=== PATIENT | male | born 1985 | race Caucasian/White ===

== ENCOUNTER 2016-11-28 20:10 | Emergency (ER) | payer MEDICAID ==
[~2016-11-28] VITALS: Ht 177.8 cm; Wt 84.4 kg
[~2016-11-28 20:10] MED LIST: GABAPENTIN 400400 MG PO; IBUPROFEN800 MG PO; TESSALON PERLE100 M1 PO
[2016-11-28] MEDS ORDERED: TIZANIDINE HCL 44 MG NG (20:21)
[2016-11-28 20:27] LABS: LYMPH # 2.7 K/mm3 (0.7-4.5); LYMPH % 19.6 % (10-50)
[2016-11-28 20:53] LABS: BUN 15 mg/dL (7-18)
[2016-11-28 20:55] LABS: GFR (ESTIMATED) 78 ML/MIN (>60)
--- NOTE | 2016-11-28 21:19 | RADIOLOGY REPORT PS360 ---
CHEST(2 VIEWS-NOT PORTABLE) INDICATION: Chest pain COMPARISON: PA and lateral chest 06/09/2016 FINDINGS: The lung wheeler are well expanded and appear clear of infiltrate. The cardiomediastinal silhouette and vascularity are normal. The costophrenic angles are clear. The bony thorax is normal except for minor wedging of 2 adjacent midthoracic vertebrae stable and unchanged from the previous exam IMPRESSION: Nonacute chest findings
--- NOTE | 2016-11-28 21:46 | Emergency Room Report ---
History of Present Illness Time Seen by [id number] Presenting Problem in Triage Pt arrived:Walked Presenting Problem:C/O CHEST PAIN WITH NAUSEA AND ALSO C/O ABDOMINAL PAIN PRIOR TO THAT. PAIN RADIATES FROM MID CHEST TO LEFT ARM. 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 N Clinical Suspician of Infection? N Mental Status: 1 - Regular (Normal Baseline) Sepsis Risk:Low Sepsis Risk Have you (or family members/close friends) recently traveled outside the [place]? N If Yes, where/when: Have you had exposure to infectious disease within the past month? N TB? Other? Specify: Source patient, RN notes reviewed, old records Exam Limitations no limitations Comment acute sharp chest pain with feeling of sob - he has had similiar episodes in past but no known card disease and no eval - he does use tob but denied any cocaine Cardiac Chest Pain Chest pain indicative of cardiac No Timing/Duration this evening Severity moderate ALLERGIES Coded Allergies: No Known Allergies (06/09/16) Home Medications Active Scripts Benzonatate (Tessalon Perle) 100 MG PO TID #15 SGL Prov: 06/09/16 Ibuprofen (Ibuprofen 800MG) 800 MG PO Q8HP PRN pain #15 TAB Prov: 06/09/16 Reported Medications GABAPENTIN (Gabapentin) 400 MG PO QHS TIZANIDINE HCL (Tizanidine Hcl 4 Mg Tablet) 4 MG NG DAILY 20 Days History Medical History General CAD? No Angina: No [place]: No Hypertension? No Hyperlipidemia? No CHF? No DVT? No PE? No COPD? No Asthma? No Anemia? No GERD? Yes Gastric ulcers? No GI Bleed? No Hernia? No Thyroid Problems? No Hypothyroidism? No CVA? No Seizures? No Diabetes? No Renal Insuffiency? No End Stage Renal Disease? No UTI? No Stones? No BPH? No GB Disease: No Nephritic Syndrome? No Asplenia? No Hepatitis? No Sickle Cell Disease? No Arthritis? No Migraines? No Cataracts? No Glaucoma? No MRSA? No HIV? No TB? No Anxiety? No Depression? No Cancer? No More? Yes Additional hx: CHRONIC BACK PAIN, MALROTAION OF ABDOMEN Immunization Hx DT/Tetanus Unknown Surgical Hx Previous Surgery?N Social History Smoking Hx Smoker: Current Every Day Smoker Tobacco: Yes Type Cigarettes Packs/day < 1 Pack Alcohol Alcohol: No Drugs none Review of Systems All Other Systems Reviewed and Negative Constitutional denies fever Eyes denies drainage ENT denies: ear pain, epistaxis, throat pain. Respiratory denies cough, denies shortness of breath, denies wheezing Cardiovascular see HPI, chest pain, denies palpitations, denies syncope Gastrointestinal see HPI, denies abdominal pain, denies diarrhea, nausea, denies vomiting Genitourinary denies: dysuria, frequency, hesitancy, hematuria. Musculoskeletal denies back pain, denies joint pain, denies joint swelling, denies neck pain Skin denies rash Psychiatric/Neurological denies headache, denies seizure Physical Exam Vital Signs Vital Signs Date Time Temp Pulse Resp B/P Pulse O2 O2 Flow FiO2 Ox Delivery Rate 11/28 2057 76.0 82 15 145/71 97 11/28 2010 97.9 82 20 144/79 97 - WBC >12,000 or <4,000 or 10% bands? 2 or more SIRS Criteria Met? B/P:145/71 MAP:100 Creatinine >2.0? UA output<0.5ml/kg/hr for 2 hrs? Platelet count >100,000? Lactate >2.0mmol/1? INR >1.2 or PTT > than 60 sec? Evidence of Organ Dysfunction? Provider documented clinical suspician of infection? N Sepsis Criteria Count: 1 Sepsis Risk: Low Sepsis Risk General Appearance no apparent distress Eye Exam - bilateral eye PERRL, bilateral eye EOMI Ear, Nose, Throat normal ENT inspection Neck supple Respiratory Status No: respiratory distress. Lung Sounds bilateral: lungs clear. 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 No Results/Orders Laboratory Tests 11/28/162011: Sodium 144, Potassium 3.5, Chloride 106, Carbon Dioxide 27, BUN 15, Creatinine 1.1, Estimated Creat Clear 116, Estimated GFR (MDRD) 78, Glucose 85, Calcium 9.0 , Total Bilirubin 0.3, AST 31, ALT 49, Alkaline Phosphatase 117 H, Creatine Kinase 744 H, CK-MB (CK-2) Rel Index 0.2, CK and CKMB Interp 1.6, Troponin I < 0.02, Total Protein 7.6, Albumin 3.9, Globulin 3.7 H, Albumin/Globulin Ratio 1.1, WBC 13.8 H, RBC 5.17, Hgb 16.0, Hct 47.3, MCV 91.6, RDW 12.5, Plt Count 240, MPV 5.8 L, Gran % 74.5, Gran # 10.3 H, Lymphocytes % 19.6, Monocytes % 3.5, Eosinophils % 2.0, Basophils % 0.4, Lymphocytes # 2.7, Monocytes # 0.5, Eosinophils # 0.3, Basophils # 0.1, PUBS MCHC 33.9, MCH 31.1 Current Medication Orders Sig/Sean Start time Last Medication Dose Route Stop Time Status Admin Aspirin 324 MG ONCE ONE 11/28 2029 DC 11/28 PO 11/28 Sodium Chloride 10 ML PRN PRN 11/28 2029 AC IV 11/29 2018 Aspirin 0 .STK-MED ONE 11/28 2024 DC .ROUTE Orders Procedure Date/time Status ELECTROCARDIOGRAM REQUEST 11/28 2018 Active IV SALINE LOCK 11/28 2018 Active CBC WITH AUTO DIFF 11/28 2018 Complete CARDIAC ENZYMES 11/28 2018 Complete CHEM 12 PROFILE 11/28 2018 [facility] 11/28 UNK Active CM/EKG 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 of ischemic chgs XRAY/CT/US XRAY/CT/US XRAY chest XR interpretation by reviewed by me Xray Results normal/NAD Departure Departure Time of Disposition 2141 Disposition DC Home or Self Care(routine) Clinical Impression Primary Impression: Chest pain Qualifiers: Chest pain type: unspecified Qualified Code: R07.9 - Chest pain, unspecified Condition STABLE Referrals NO REFERRAL (Family) Patient Instructions DI for Atypical Chest Pain Additional Instructions please see pcp for follow up Discharge Counseling Counseled pt/family regarding diagnosis, test results, medications/RX, follow up needs ED Critical Care Critical Care No at [id number]
[2016-11-28 21:51] VITALS: BP 139/82
== END 2016-11-28 21:55 | disposition home or self-care (01) ==
LOC: ER 20:10
PROVIDERS: Emergency Medicine
DX: R07.9 Chest pain, unspecified (principal)

== ENCOUNTER → 2017-05-10 | Emergency (ER) | payer MEDICAID ==
[~2017-05-10] VITALS: Ht 177.8 cm; Wt 84.4 kg
[~2017-05-10] MED LIST changes: +AUGMENTIN 875-1 EACH PO; +FLONASE 50 MCG16 GM; +MEDROL 4MG. DOSE4 MG PO; +NAPROXEN SODIU500 MG PO; +PROVENTIL0.09 MG/A1 IH; +ROBAXIN-750750 MG PO; +TIZANIDINE HCL 44 MG NG
[2017-05-10 14:32] LABS: HEMOGLOBIN 15.6 g/dL (14.1-18.0); LYMPH # 3.1 K/mm3 (0.7-4.5); LYMPH % 28.1 % (10-50)
[2017-05-10 14:51] LABS: BUN 13 mg/dL (7-18); GFR (ESTIMATED) 87 ML/MIN (>60)
--- NOTE | 2017-05-10 16:00 | RADIOLOGY REPORT PS360 ---
CHEST(2 VIEWS-NOT PORTABLE) HISTORY: Chest pain CP SINCE 9AM ORDERING PHYSICIAN: Silva Teague MD PATIENT AGE: 31 years COMPARISON: 11/28/2016 FINDINGS: The cardiomediastinal silhouette and pulmonary vascularity are within normal limits. The lungs are clear without infiltrates, suspicious nodules, or pleural effusions. No acute bony abnormalities. Chronic degenerative changes are present in the thoracic spine with mild kyphosis and chronic mild wedging of mid thoracic vertebral body IMPRESSION: No change with no acute finding
--- NOTE | 2017-05-10 16:50 | Emergency Room Report ---
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 N Clinical Suspician of Infection? N Mental Status: 1 - Regular (Normal Baseline) Sepsis Risk:Low Sepsis Risk Have you (or family members/close friends) recently traveled outside the [place]? N If Yes, where/when: Have you had exposure to infectious disease within the past month? TB? Other? Specify: Patient with positional chest pain when lifting pizza boxes at work today. No SOB, no vomiting, no calf pain, no trauma, no recent travel, pain nonradiating. No fever or flu sx. Cardiac RF's are smoking and dad Hx [place]. No FH suddent . ALLERGIES Coded Allergies: No Known Allergies (06/09/16) Home Medications Reported Medications GABAPENTIN (Gabapentin) 400 MG PO QHS TIZANIDINE HCL (Tizanidine Hcl 4 Mg Tablet) 4 MG NG DAILY 20 Days History Medical History General CAD? No Angina: No [place]: No Hypertension? No Hyperlipidemia? No CHF? No DVT? No PE? No COPD? No Asthma? No Anemia? No GERD? Yes Gastric ulcers? No GI Bleed? No Hernia? No Thyroid Problems? No Hypothyroidism? No CVA? No Seizures? No Diabetes? No Renal Insuffiency? No End Stage Renal Disease? No UTI? No Stones? No BPH? No GB Disease: No Nephritic Syndrome? No Asplenia? No Hepatitis? No Sickle Cell Disease? No Arthritis? No Migraines? No Cataracts? No Glaucoma? No MRSA? No HIV? No TB? No Anxiety? No Depression? No Cancer? No More? Yes Additional hx: CHRONIC BACK PAIN, MALROTAION OF ABDOMEN Immunization Hx DT/Tetanus Unknown Surgical Hx Previous Surgery?Y Oral Surgery Social History Smoking Hx Smoker: Current Every Day Smoker Tobacco: Yes Type Cigarettes Packs/day < 1 Pack Alcohol Alcohol: No Review of Systems All Other Systems Reviewed and Negative Cardiovascular see HPI Musculoskeletal see HPI Physical Exam Vital Signs Vital Signs Date Time Temp Pulse Resp B/P Pulse O2 O2 Flow FiO2 Ox Delivery Rate 05/10 1551 82 20 113/67 98 05/10 1458 87 20 132/80 99 05/10 1411 98.0 85 20 142/74 97 General Appearance normal appearance, WD/WN, no apparent distress Eye Exam - bilateral eye normal exam, bilateral eye PERRL, bilateral eye EOMI Neck normal inspection, non-tender, supple, full range of motion Respiratory Status Yes: trachea midline, chest symmetrical, tender on palpation. No: respiratory distress, non tender chest, use of accessory muscles, pain on inspiration, pain on expiration, productive cough, non productive cough (no subcutaneous air). Lung Sounds bilateral: normal breath sounds, lungs clear. 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 No Results/Orders Laboratory Tests 05/10/17 1410: Sodium 142, Potassium 4.2, Chloride 105, Carbon Dioxide 33 H, BUN 13, Creatinine 1.0, Estimated Creat Clear 128, Estimated GFR (MDRD) 87, Glucose 86, Calcium 9.3, Total Bilirubin 0.6, AST 27, ALT 45, Alkaline Phosphatase 90, Creatine Kinase 370 H, CK-MB (CK-2) Rel Index 1.0, CK and CKMB Interp 3.8 H, Troponin I < 0.02, Total Protein 7.5, Albumin 4.3, Globulin 3.2, Albumin/ Globulin Ratio 1.3, WBC 11.0 H, RBC 5.16, Hgb 15.6, Hct 46.6, MCV 90.4, RDW 12.4, Plt Count 247, MPV 7.7, Gran % 64.0, Gran # 7.0, Lymphocytes % 28.1, Monocytes % 5.0, Eosinophils % 2.3, Basophils % 0.5, Lymphocytes # 3.1, Monocytes # 0.6, Eosinophils # 0.3, Basophils # 0.1, PUBS MCHC 33.6, MCH 30.3 Current Medication Orders Sig/Sean Start time Last Medication Dose Route Stop Time Status Admin Sodium Chloride 10 ML PRN PRN 05/10 1415 AC IV 05/11 1415 Orders Procedure Date/time Status ELECTROCARDIOGRAM REQUEST 05/10 1415 Active IV SALINE LOCK 05/10 1415 Active CBC WITH AUTO DIFF 05/10 1415 Complete CARDIAC ENZYMES 05/10 1415 Complete CHEM 12 PROFILE 05/10 1415 Complete 12 LEAD EKG-[facility] (INITIAL) 05/10 UNK Active CM/EKG CM/EKG EKG rate, NSR, rhythm, no evid. of ischemic chgs, no ectopy, normal QRS, normal [place], normal EKG XRAY/CT/US XRAY/CT/US XRAY chest XR interpretation by reviewed by me (report reviewed) Xray Results normal/NAD, no infiltrates, normal heart size, no hematoma seen, normal lung inflation zachery Departure Departure Time of Disposition 165 Disposition DC Home or Self Care(routine) Clinical Impression Primary Impression: Musculoskeletal chest pain Condition STABLE Patient Instructions DI for Musculoskeletal Pain Additional Instructions Naproxen, bend at knees when lifting, see MD of choice for follow up one week, see list. Discharge Counseling Counseled pt/family regarding diagnosis, test results, medications/RX, home care, alcohol counseling,> 3min Prescriptions Current Visit Scripts NAPROXEN (NAPROXEN 500MG TAB) 500 MG PO BIDP PRN pain #20 TAB ED Critical Care Critical Care No at 1701
--- NOTE | 2017-05-10 16:50 | Emergency Room Report ---
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 N Clinical Suspician of Infection? N Mental Status: 1 - Regular (Normal Baseline) Sepsis Risk:Low Sepsis Risk Have you (or family members/close friends) recently traveled outside the [place]? N If Yes, where/when: Have you had exposure to infectious disease within the past month? TB? Other? Specify: Patient with positional chest pain when lifting pizza boxes at work today. No SOB, no vomiting, no calf pain, no trauma, no recent travel, pain nonradiating. No fever or flu sx. Cardiac RF's are smoking and dad Hx [place]. No FH suddent . ALLERGIES Coded Allergies: No Known Allergies (06/09/16) Home Medications Reported Medications GABAPENTIN (Gabapentin) 400 MG PO QHS TIZANIDINE HCL (Tizanidine Hcl 4 Mg Tablet) 4 MG NG DAILY 20 Days History Medical History General CAD? No Angina: No [place]: No Hypertension? No Hyperlipidemia? No CHF? No DVT? No PE? No COPD? No Asthma? No Anemia? No GERD? Yes Gastric ulcers? No GI Bleed? No Hernia? No Thyroid Problems? No Hypothyroidism? No CVA? No Seizures? No Diabetes? No Renal Insuffiency? No End Stage Renal Disease? No UTI? No Stones? No BPH? No GB Disease: No Nephritic Syndrome? No Asplenia? No Hepatitis? No Sickle Cell Disease? No Arthritis? No Migraines? No Cataracts? No Glaucoma? No MRSA? No HIV? No TB? No Anxiety? No Depression? No Cancer? No More? Yes Additional hx: CHRONIC BACK PAIN, MALROTAION OF ABDOMEN Immunization Hx DT/Tetanus Unknown Surgical Hx Previous Surgery?Y Oral Surgery Social History Smoking Hx Smoker: Current Every Day Smoker Tobacco: Yes Type Cigarettes Packs/day < 1 Pack Alcohol Alcohol: No Review of Systems All Other Systems Reviewed and Negative Cardiovascular see HPI Musculoskeletal see HPI Physical Exam Vital Signs Vital Signs Date Time Temp Pulse Resp B/P Pulse O2 O2 Flow FiO2 Ox Delivery Rate 05/10 1551 82 20 113/67 98 05/10 1458 87 20 132/80 99 05/10 1411 98.0 85 20 142/74 97 General Appearance normal appearance, WD/WN, no apparent distress Eye Exam - bilateral eye normal exam, bilateral eye PERRL, bilateral eye EOMI Neck normal inspection, non-tender, supple, full range of motion Respiratory Status Yes: trachea midline, chest symmetrical, tender on palpation. No: respiratory distress, non tender chest, use of accessory muscles, pain on inspiration, pain on expiration, productive cough, non productive cough (no subcutaneous air). Lung Sounds bilateral: normal breath sounds, lungs clear. 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 No Results/Orders Laboratory Tests 05/10/17 1410: Sodium 142, Potassium 4.2, Chloride 105, Carbon Dioxide 33 H, BUN 13, Creatinine 1.0, Estimated Creat Clear 128, Estimated GFR (MDRD) 87, Glucose 86, Calcium 9.3, Total Bilirubin 0.6, AST 27, ALT 45, Alkaline Phosphatase 90, Creatine Kinase 370 H, CK-MB (CK-2) Rel Index 1.0, CK and CKMB Interp 3.8 H, Troponin I < 0.02, Total Protein 7.5, Albumin 4.3, Globulin 3.2, Albumin/ Globulin Ratio 1.3, WBC 11.0 H, RBC 5.16, Hgb 15.6, Hct 46.6, MCV 90.4, RDW 12.4, Plt Count 247, MPV 7.7, Gran % 64.0, Gran # 7.0, Lymphocytes % 28.1, Monocytes % 5.0, Eosinophils % 2.3, Basophils % 0.5, Lymphocytes # 3.1, Monocytes # 0.6, Eosinophils # 0.3, Basophils # 0.1, PUBS MCHC 33.6, MCH 30.3 Current Medication Orders Sig/Sean Start time Last Medication Dose Route Stop Time Status Admin Sodium Chloride 10 ML PRN PRN 05/10 1415 AC IV 05/11 1415 Orders Procedure Date/time Status ELECTROCARDIOGRAM REQUEST 05/10 1415 Active IV SALINE LOCK 05/10 1415 Active CBC WITH AUTO DIFF 05/10 1415 Complete CARDIAC ENZYMES 05/10 1415 Complete CHEM 12 PROFILE 05/10 1415 Complete 12 LEAD EKG-[facility] (INITIAL) 05/10 UNK Active CM/EKG CM/EKG EKG rate, NSR, rhythm, no evid. of ischemic chgs, no ectopy, normal QRS, normal [place], normal EKG XRAY/CT/US XRAY/CT/US XRAY chest XR interpretation by reviewed by me (report reviewed) Xray Results normal/NAD, no infiltrates, normal heart size, no hematoma seen, normal lung inflation zachery Departure Departure Time of Disposition 165 Disposition DC Home or Self Care(routine) Clinical Impression Primary Impression: Musculoskeletal chest pain Condition STABLE Patient Instructions DI for Musculoskeletal Pain Additional Instructions Naproxen, bend at knees when lifting, see MD of choice for follow up one week, see list. Discharge Counseling Counseled pt/family regarding diagnosis, test results, medications/RX, home care, alcohol counseling,> 3min Prescriptions Current Visit Scripts NAPROXEN (NAPROXEN 500MG TAB) 500 MG PO BIDP PRN pain #20 TAB ED Critical Care Critical Care No at 1701
[2017-05-10 17:15] VITALS: BP 122/78
--- OUTSIDE RECORDS SUMMARY | 2017-05-14 06:16 | External Medical Summary Rpt ---
Author Author JAIDEN Sandoval, [employer] Address Unknown Phone Unavailable
--- OUTSIDE RECORDS SUMMARY | 2017-05-14 06:16 | External Medical Summary Rpt | CCD ---
Author Author , TG HWANG Address Unknown Phone Purpose Continuity of Care Document - through 2016
--- OUTSIDE RECORDS SUMMARY | 2017-05-14 06:16 | External Medical Summary Rpt | CCD ---
Author Author , JAIDEN HWANG Address Unknown Phone [email or web address] Immunization Name Date Rout CVX Reac Dose Comm Prov Is Faci e tion ent ider Refu lity Give sed n Tdap 03-1 115 999 Hist H119 No H119 , 7-20 oric Adso 11 al rbed Info rmat ion - Sour ce Unsp ecif ied MMR 05-1 3 999 Hist H119 No H119 9-19 oric 98 al Info rmat ion - Sour ce Unsp ecif ied
--- OUTSIDE RECORDS SUMMARY | 2017-05-14 06:16 | External Medical Summary Rpt | CCD ---
Author Author , TG HWANG Address Unknown Phone [email or web address] Purpose Continuity of Care Document - through 2016
--- OUTSIDE RECORDS SUMMARY | 2017-05-14 06:16 | External Medical Summary Rpt | CCD ---
Author Author , JAIDEN HWANG Address Unknown Phone [email or web address] Immunization Name Date Rout CVX Reac Dose [...]
== END ==
LOC: ER 14:10
PROVIDERS: Emergency Medicine
DX: R07.89 Other chest pain (principal); K21.9 Gastro-esophageal reflux disease without esophagitis; F17.210 Nicotine dependence, cigarettes, uncomplicated

== ENCOUNTER 2017-05-12 16:15 | Emergency (ER) | payer MEDICAID ==
[~2017-05-12] VITALS: Ht 177.8 cm; Wt 84.4 kg
[~2017-05-12 16:15] MED LIST changes: -MEDROL 4MG. DOSE4 MG PO; -PROVENTIL0.09 MG/A1 IH; -ROBAXIN-750750 MG PO
[2017-05-12 16:28] LABS: HEMOGLOBIN 15.5 g/dL (14.1-18.0); LYMPH # 3.3 K/mm3 (0.7-4.5); LYMPH % 22.1 % (10-50)
--- NOTE | 2017-05-12 16:35 | Emergency Room Report ---
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 N Clinical Suspician of Infection? N Mental Status: 1 - Regular (Normal Baseline) Sepsis Risk:Low Sepsis Risk Have you (or family members/close friends) recently traveled outside the [place]? N If Yes, where/when: Have you had exposure to infectious disease within the past month? N TB? Other? Specify: 31 yrs old white male presented with a retrosternal chest pressure x 2 days duration , worse with movement. It is associated with shortness of breath. He denies any history of cocaine use or any other drugs. He has a long-standing history of sciatica pain. Source patient, RN notes reviewed Exam Limitations no limitations ALLERGIES Coded Allergies: No Known Allergies (05/12/17) Home Medications Active Scripts NAPROXEN (NAPROXEN 500MG TAB) 500 MG PO BIDP PRN pain #20 TAB Prov: 05/10/17 Reported Medications GABAPENTIN (Gabapentin) 400 MG PO QHS TIZANIDINE HCL (Tizanidine Hcl 4 Mg Tablet) 4 MG NG DAILY 20 Days History Medical History General CAD? No Angina: No [place]: No Hypertension? No Hyperlipidemia? No CHF? No DVT? No PE? No COPD? No Asthma? No Anemia? No GERD? Yes Gastric ulcers? No GI Bleed? No Hernia? No Thyroid Problems? No Hypothyroidism? No CVA? No Seizures? No Diabetes? No Renal Insuffiency? No End Stage Renal Disease? No UTI? No Stones? No BPH? No GB Disease: No Nephritic Syndrome? No Asplenia? No Hepatitis? No Sickle Cell Disease? No Arthritis? No Migraines? No Cataracts? No Glaucoma? No MRSA? No HIV? No TB? No Anxiety? No Depression? No Cancer? No More? Yes Additional hx: CHRONIC BACK PAIN, MALROTAION OF ABDOMEN Immunization Hx DT/Tetanus Unknown Surgical Hx Previous Surgery?Y Oral Surgery Social History Smoking Hx Smoker: Current Every Day Smoker Tobacco: Yes Type Cigarettes Packs/day < 1 Pack Alcohol Alcohol: No Review of Systems All Other Systems Reviewed and Negative Constitutional no symptoms reported Eyes no symptoms reported ENT no symptoms reported. Respiratory see HPI, shortness of breath Cardiovascular see HPI, chest pain Gastrointestinal no symptoms reported Genitourinary no symptoms reported. Musculoskeletal no symptoms reported Skin no symptoms reported Psychiatric/Neurological no symptoms reported Physical Exam Vital Signs Vital Signs Date Time Temp Pulse Resp B/P Pulse O2 O2 Flow FiO2 Ox Delivery Rate 05/12 1916 98.0 60 18 134/74 98 05/12 1818 60 14 115/58 100 05/12 1642 18 05/12 1624 98.1 66 22 126/76 100 - WBC >12,000 or <4,000 or 10% bands? 2 or more SIRS Criteria Met? B/P:126/76 MAP:92 Creatinine >2.0? UA output<0.5ml/kg/hr for 2 hrs? Platelet count >100,000? Lactate >2.0mmol/1? INR >1.2 or PTT > than 60 sec? Evidence of Organ Dysfunction? Provider documented clinical suspician of infection? N Sepsis Criteria Count: 1 Sepsis Risk: Low Sepsis Risk General Appearance normal appearance, WD/WN Eye Exam - bilateral eye normal exam, bilateral eye PERRL, bilateral eye EOMI Ear, Nose, Throat hearing grossly normal, normal ENT inspection Neck normal inspection, non-tender, supple, full range of motion Respiratory Status Yes: trachea midline, chest symmetrical, non tender chest. No: respiratory distress. Lung Sounds bilateral: normal breath sounds, lungs clear. right: decreased breath sounds ( diminished breath found the RI). Cardiovascular normal exam, regular rate/rhythm, no peripheral edema, no gallop, no JVD, no murmur, no rub, normal peripheral pulses Peripheral Pulses Pulses normal Yes Gastrointestinal normal bowel sounds, normal exam, non tender, soft, no organomegaly Back normal inspection, no CVA tenderness, no vertebral tenderness Extremities non-tender, normal range of motion, normal inspection Neurologic alert, reinforcer II-XII nml as tested, normal exam, oriented x 3 Reflexes Reflexes normal Yes Mental status normal mood/affect Skin intact, normal color, warm/dry Medical Decision Making LABS/Meds/Orders Pt receiving controlled substance in ED? No Results/Orders Laboratory Tests 05/12/17 1615: B-Natriuretic Peptide 40 05/12/17 1615: Sodium 140, Potassium 3.7, Chloride 104, Carbon Dioxide 31, BUN 12, Creatinine 0.9, Estimated Creat Clear 142, Estimated GFR (MDRD) 98, Glucose 87, Calcium 8.9 , Total Bilirubin 0.5, AST 25, ALT 43, Alkaline Phosphatase 87, Creatine Kinase 318 H, CK-MB (CK-2) Rel Index 1.1, CK and CKMB Interp 3.5, Troponin I < 0.02, Total Protein 7.4, Albumin 4.4, Globulin 3.0, Albumin/Globulin Ratio 1.5, D- Dimer < 100, WBC 14.9 H, RBC 5.06, Hgb 15.5, Hct 45.5, MCV 90.0, RDW 12.5, Plt Count 235, MPV 7.7, Gran % 71.5, Gran # 10.7 H, Lymphocytes % 22.1, Monocytes % 4.3, Eosinophils % 1.6, Basophils % 0.5, Lymphocytes # 3.3, Monocytes # 0.7, Eosinophils # 0.2, Basophils # 0.1, PUBS MCHC 33.9, MCH 30.5, Salicylates 3.1, Acetaminophen 0 L, Alcohols 0 Current Medication Orders Sig/Sean Start time Last Medication Dose Route Stop Time Status Admin Iopamidol 60 ML .[ONC] 05/12 1815 UNV 05/12 IV 1814 Sodium Chloride 20 ML ONCE ONE 05/12 181 UNV 05/12 IV 05/12 181 1814 Sodium Chloride 20 ML ONCE ONE 05/12 181 UNV 05/12 IV 05/12 181 1814 Sodium Chloride 10 ML PRN PRN 05/12 1815 UNV 05/12 IV 05/12 1943 1814 Albuterol 2.5 MG ONCE ONE 05/12 1745 DC 05/12 INH 05/12 1746 1806 Methocarbamol 1,000 MG ONCE ONE 05/12 1745 DC PO 05/12 1746 Famotidine 20 MG ONCE ONE 05/12 1645 DC 05/12 IV 05/12 1646 1644 Sodium Chloride 8 ML ONCE ONE 05/12 1645 DC IV 05/12 1646 Albuterol 2.5 MG ONCE ONE 05/12 1630 DC 05/12 INH 05/12 1631 1637 Famotidine 20 MG 05/12 1630 CAN IV Ketorolac 30 MG ONCE ONE 05/12 1630 DC 05/12 Tromethamine IV 05/12 1631 1642 Methylprednisolone 125 MG ONCE ONE 05/12 1630 DC 05/12 Sodium Succinate IV 05/12 1631 1642 Sodium Chloride 10 ML PRN PRN 05/12 1630 AC IV 05/13 1619 Orders Procedure Date/time Status DIET-NOTHING BY MOUTH 05/13 B Active CTA-CHEST 05/12 1739 Active RT REQUEST ALBUTEROL NEB 05/[address] CHEST W/PE PROTOCOL REQ 05/12 1736 Active RT REQUEST ALBUTEROL NEB 05/12 1630 Active D-DIMER 05/12 1630 Complete BRAIN NATRIURETIC PEPTIDE 05/12 1630 Complete SALICYLATE 05/12 1629 Complete DRUG ABUSE SCREEN (10) 05/12 1629 Active ALCOHOL 05/12 1629 Complete Acetaminophen 05/12 1629 Complete 12 LEAD EKG-BESSON (INITIAL) 05/12 1620 Active ELECTROCARDIOGRAM REQUEST 05/12 1620 Active IV SALINE LOCK 05/12 1620 Active CBC WITH AUTO DIFF 05/12 1620 Complete CARDIAC ENZYMES 05/12 1620 Complete CHEM 12 PROFILE 05/12 1620 Complete CM/EKG CM/EKG Comments Normal sinus that is 65 minutes baseline artifact LEFT axis deviation nonspecific ST and T-wave changes Departure Departure Time of Disposition 1918 Disposition DC Home or Self Care(routine) Clinical Impression Primary Impression: Thoracic myofascial strain Secondary Impressions: Anterior chest wall pain, Chest wall pain, Reactive airway disease, Tobacco abuse disorder Condition STABLE Referrals Lucina ROBERTS,Donta Rodriguez Additional Instructions The patient admitted much better. He continued to complain of pain in between his shoulder blades. i SENT HIM FOR a CT scan of the chest Discharge Counseling Counseled pt/family regarding diagnosis, test results, medications/RX, home care, follow up needs Prescriptions Current Visit Scripts Methylprednisolone (Medrol Dose Lex) 4 MG PO UD #1 LEX TAKE DIRECTED ON PACKAGING Methocarbamol (Robaxin 750MG) 750 MG PO Q8 #21 TAB ALBUTEROL (Proventil Hfa Inhaler) 1-2 PUFF IH Q4-6H PRN #1 CAN Ref 2 ED Critical Care Critical Care No If Critical Care minutes are documented, the time involved in the performance of seperately reportable procedures was not counted toward critical care time documented. I directly delivered medical care to this critically ill and/or injured patient. Timely evaluation and treatment was necessary to address the significant organ system(s) dysfunction present in this patient. Comments I discussed with the patietn the need to stop smoking adopt healthy life style start seeing his pcp dr keita for health screenin and smokin cessation he verblaized understanding. at 1923
--- NOTE | 2017-05-12 16:51 | RADIOLOGY REPORT PS360 ---
CHEST(2 VIEWS-NOT PORTABLE) HISTORY: Chest pain, cough CP WITH MOVEMENT, COUGH ORDERING PHYSICIAN: Varinder Seymour MD PATIENT AGE: 31 years COMPARISON: 05/10/2017 FINDINGS: The cardiomediastinal silhouette and pulmonary vascularity are within normal limits. The lungs are clear without infiltrates, suspicious nodules, or pleural effusions. No acute bony abnormalities. There is mild chronic wedging of mid dorsal vertebral bodies unchanged IMPRESSION: No change with no acute finding
[2017-05-12 16:57] LABS: BUN 12 mg/dL (7-18)
[2017-05-12 17:01] LABS: GFR (ESTIMATED) 98 ML/MIN (>60)
[2017-05-12] MEDS ORDERED: ROBAXIN-750750 MG PO (18:27)
[2017-05-12] MEDS ORDERED: PROVENTIL0.09 MG/A1 IH (18:27)
[2017-05-12] MEDS ORDERED: MEDROL 4MG. DOSE4 MG PO (18:27)
[2017-05-12 19:25] VITALS: BP 134/74
--- NOTE | 2017-05-13 05:21 | RADIOLOGY REPORT PS360 ---
CTA-CHEST HISTORY: Shortness of air with chest pain, smoker, mid back pain SOA AND MID BACK PAIN ORDERING PHYSICIAN: Varinder Seymour MD PATIENT AGE: 31 years TECHNIQUE: Helical acquisition obtained following the bolus administration of 60 mL of Isovue 370 followed by a saline bolus. Axial, sagittal, and coronal reformatted images are generated and reviewed. COMPARISON: None FINDINGS: PULMONARY ARTERIES:No pulmonary embolus evident. AORTA:No acute finding. No thoracic aortic aneurysm or dissection evident LUNGS:Unremarkable. No mass or consolidation. PLEURAL SPACES:No significant effusion. No evidence of pneumothorax. HEART:Unremarkable. Normal heart size. No significant pericardial effusion. MEDIASTINAL AND HILAR STRUCTURES:Scattered small lymph nodes present within mediastinum. There is some increased density in the anterior mediastinum likely related to residual thymic tissue. BONY STRUCTURES:No acute bony abnormalities apparent LYMPH NODES:No enlarged lymph nodes evident UPPER ABDOMEN:Unremarkable IMPRESSION: No acute finding. No evidence of pulmonary embolus or aortic aneurysm. Scattered small mediastinal lymph nodes with probable incidental residual finding may tissue.
--- OUTSIDE RECORDS SUMMARY | 2017-05-14 17:46 | External Medical Summary Rpt | CCD ---
Author Author , TG HWANG Address Unknown Phone [email or web address] Purpose Continuity of Care Document - through 2016
--- OUTSIDE RECORDS SUMMARY | 2017-05-14 17:46 | External Medical Summary Rpt | CCD ---
Author Author , JAIDEN HWANG Address Unknown Phone [email or web address] Immunization Name Date Rout CVX Reac Dose [...]
--- OUTSIDE RECORDS SUMMARY | 2017-05-14 17:46 | External Medical Summary Rpt | CCD ---
Author Author , JAIDEN HWANG Address Unknown Phone [email or web address] Immunization Name Date Rout CVX Reac Dose [...]
== END 2017-05-12 19:25 | disposition home or self-care (01) ==
LOC: ER 16:15
PROVIDERS: Emergency Medicine
DX: S29.012A Strain of muscle and tendon of back wall of thorax, initial encounter (principal); R07.89 Other chest pain; F17.210 Nicotine dependence, cigarettes, uncomplicated; K21.9 Gastro-esophageal reflux disease without esophagitis
CPT/HCPCS: Q9967

== ENCOUNTER 2017-05-23 22:20 | Emergency (ER) | payer MEDICAID ==
[~2017-05-23] VITALS: Ht 177.8 cm; Wt 84.4 kg
[~2017-05-23 22:20] MED LIST changes: +MEDROL 4MG. DOSE4 MG PO; +PROVENTIL0.09 MG/A1 IH; +ROBAXIN-750750 MG PO
--- OUTSIDE RECORDS SUMMARY | 2017-05-23 22:27 | External Medical Summary Rpt | CCD ---
Author Author , TG HWANG Address Unknown Phone [email or web address] Purpose Continuity of Care Document - through 2016
--- OUTSIDE RECORDS SUMMARY | 2017-05-23 22:27 | External Medical Summary Rpt | CCD ---
Author Author , JAIDEN HWANG Address Unknown Phone [email or web address] Immunization Name Date Rout CVX Reac Dose [...]
--- OUTSIDE RECORDS SUMMARY | 2017-05-23 22:27 | External Medical Summary Rpt | CCD ---
Author Author , JAIDEN HWANG Address Unknown Phone [email or web address] Immunization Name Date Rout CVX Reac Dose [...]
[2017-05-23 22:32] LABS: HEMOGLOBIN 16.2 g/dL (14.1-18.0); LYMPH # 4.7 K/mm3 (0.7-4.5); LYMPH % 35.4 % (10-50)
[2017-05-23 22:57] LABS: BUN 19 mg/dL (7-18); GFR (ESTIMATED) 87 ML/MIN (>60)
--- NOTE | 2017-05-23 23:17 | Emergency Room Report ---
History of Present Illness Time Seen by 221Sheri Presenting Problem in Triage Pt arrived:Walked Presenting Problem:C/O LEFT CHEST PAIN WORSE WITH DEEP INSPIRATION,COUGH AND MOVEMENT SINCE 05/13/17. 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 N Clinical Suspician of Infection? N Mental Status: 1 - Regular (Normal Baseline) Sepsis Risk:Low Sepsis Risk Have you (or family members/close friends) recently traveled outside the [place]? N If Yes, where/when: Have you had exposure to infectious disease within the past month? N TB? Other? 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 w/o hemoptysis- over the last 2 weeks with ed visit x 2 - see charts as they were reviewed- neg ct chest for pe - does smoke Cardiac Chest Pain Chest pain indicative of cardiac No Timing/Duration this evening Severity moderate ALLERGIES Coded Allergies: No Known Allergies (05/12/17) Home Medications Active Scripts NAPROXEN (NAPROXEN 500MG TAB) 500 MG PO BIDP PRN pain #20 TAB Prov: 05/10/17 Methocarbamol (Robaxin 750MG) 750 MG PO Q8 #21 TAB Prov: 05/12/17 ALBUTEROL (Proventil Hfa Inhaler) 1-2 PUFF IH Q4-6H PRN #1 CAN Ref 2 Prov: 05/12/17 Reported Medications GABAPENTIN (Gabapentin) 400 MG PO QHS TIZANIDINE HCL (Tizanidine Hcl 4 Mg Tablet) 4 MG NG DAILY 20 Days History Medical History General CAD? No Angina: No [place]: No Hypertension? No Hyperlipidemia? No CHF? No DVT? No PE? No COPD? No Asthma? No Anemia? No GERD? Yes Gastric ulcers? No GI Bleed? No Hernia? No Thyroid Problems? No Hypothyroidism? No CVA? No Seizures? No Diabetes? No Renal Insuffiency? No End Stage Renal Disease? No UTI? No Stones? No BPH? No GB Disease: No Nephritic Syndrome? No Asplenia? No Hepatitis? No Sickle Cell Disease? No Arthritis? No Migraines? No Cataracts? No Glaucoma? No MRSA? No HIV? No TB? No Anxiety? No Depression? No Cancer? No More? Yes Additional hx: CHRONIC BACK PAIN, MALROTAION OF ABDOMEN Immunization Hx DT/Tetanus Unknown Surgical Hx Previous Surgery?Y Oral Surgery Social History Smoking Hx Smoker: Current Every Day Smoker Tobacco: Yes Type Cigarettes Packs/day < 1 Pack Alcohol Alcohol: No Drugs none Review of Systems All Other Systems Reviewed and Negative Constitutional denies fever Eyes denies drainage ENT denies: ear pain, epistaxis, throat pain. Respiratory see HPI, cough, denies shortness of breath, denies wheezing Cardiovascular see HPI, chest pain, denies palpitations, denies syncope Gastrointestinal denies abdominal pain, denies diarrhea, denies vomiting Genitourinary denies: dysuria, frequency, hesitancy, hematuria. Musculoskeletal denies back pain, denies joint pain, denies joint swelling, denies neck pain Skin denies rash Psychiatric/Neurological denies headache, denies seizure Physical Exam Vital Signs Vital Signs Date Time Temp Pulse Resp B/P Pulse O2 O2 Flow FiO2 Ox Delivery Rate 05/24 0006 50 16 132/76 99 05/23 2332 20 05/23 2325 55 14 123/64 99 05/23 2250 57 14 143/65 99 05/23 2220 98.3 67 20 139/69 100 - WBC >12,000 or <4,000 or 10% bands? 2 or more SIRS Criteria Met? B/P:143/65 MAP:92 Creatinine >2.0? UA output<0.5ml/kg/hr for 2 hrs? Platelet count >100,000? Lactate >2.0mmol/1? INR >1.2 or PTT > than 60 sec? Evidence of Organ Dysfunction? Provider documented clinical suspician of infection? N Sepsis Criteria Count: 1 Sepsis Risk: Low Sepsis Risk General Appearance no apparent distress Eye Exam - bilateral eye PERRL, bilateral eye EOMI Ear, Nose, Throat normal ENT inspection, pharyngeal erythema Neck supple Respiratory Status No: respiratory distress. Lung Sounds bilateral: rhonchi. 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 No Results/Orders Laboratory Tests 05/23/172226: Sodium 141, Potassium 4.1, Chloride 104, Carbon Dioxide 29, BUN 19 H, Creatinine 1.0, Estimated Creat Clear 128, Estimated GFR (MDRD) 87, Glucose 101, Calcium 9.2, Total Bilirubin 0.3, AST 21, ALT 44, Alkaline Phosphatase 92, Creatine Kinase 147, CK-MB (CK-2) Rel Index 1.3, CK and CKMB Interp 1.9, Troponin I < 0.02, Total Protein 7.4, Albumin 4.2, Globulin 3.2, Albumin/ Globulin Ratio 1.3, WBC 13.2 H, RBC 5.28, Hgb 16.2, Hct 48.3, MCV 91.6, RDW 12.7, Plt Count 264, MPV 7.2 L, Gran % 57.1, Gran # 7.6, Lymphocytes % 35.4, Monocytes % 5.1, Eosinophils % 1.9, Basophils % 0.6, Lymphocytes # 4.7 H, Monocytes # 0.7, Eosinophils # 0.3, Basophils # 0.1, PUBS MCHC 33.5, MCH 30.7 Current Medication Orders Sig/Sean Start time Last Medication Dose Route Stop Time Status Admin Diphenhydramine HCl 0 .STK-MED ONE 05/24 0001 DC .ROUTE Diphenhydramine HCl 25 MG ONCE ONE 05/23 2345 DC 05/24 IV 05/23 2346 0002 Ceftriaxone Sodium 1 GM ONCE ONE 05/23 2330 DC 05/23 Sodium Chloride 50 ML IV 05/23 Ketorolac 30 MG ONCE ONE 05/23 2330 DC 05/23 Tromethamine IV 05/23 Levofloxacin 500 MG ONCE ONE 05/23 2330 DC 05/23 PO 05/23 Methylprednisolone 125 MG ONCE ONE 05/23 2330 DC 05/23 Sodium Succinate IV 05/23 2331 2331 Ceftriaxone Sodium 0 .STK-MED ONE 05/23 2326 DC IV Ketorolac 0 .STK-MED ONE 05/23 2326 DC Tromethamine .ROUTE Methylprednisolone 0 .STK-MED ONE 05/23 2326 DC Sodium Succinate .ROUTE Sodium Chloride 50 ML .STK-MED ONE 05/23 2326 DC IV Levofloxacin 0 .STK-MED ONE 05/23 2325 DC .ROUTE Orders Procedure Date/time Status 12 LEAD EKG-BESSON (INITIAL) 05/23 2222 Active ELECTROCARDIOGRAM REQUEST 05/23 2222 Active CHEST(2 VIEWS-NOT PORTABLE) 05/23 2222 Active IV SALINE LOCK 05/23 2222 Active CBC WITH AUTO DIFF 05/23 2222 Complete CARDIAC ENZYMES 05/23 2222 Complete CHEM 12 PROFILE 05/23 2222 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 ST/Twave chgs XRAY/CT/US XRAY/CT/US XRAY chest XR interpretation by reviewed by me Xray Results normal/NAD Progress ED Progress Notes Date 05/24/17 Time 0007 Comment pt with itchy hands and hives after meds - prob levofloxin Departure Departure Time of Disposition 2318 Disposition DC Home or Self Care(routine) Clinical Impression Primary Impression: Pleurisy Secondary Impressions: Allergic reaction caused by a drug Qualifiers: Encounter type: initial encounter Qualified Code: T78.40XA - Allergy, unspecified, initial encounter Condition STABLE Referrals Cayetano Verdugo MD (Family) Patient Instructions DI for Pleurisy Additional Instructions see pcp for follow up and recheck if any problems Discharge Counseling Counseled pt/family regarding diagnosis, test results, medications/RX, follow up needs Prescriptions Current Visit Scripts Prednisone (Prednisone 20MG) 20 MG PO BID #10 TAB BENZONATATE (Benzonatate) 100 MG PO TID #21 CAP Azithromycin (Zithromycin (Z-BRAYDON) 250MG Tab) 250 MG PO DAILY #6 TAB TAKE TWO (2) TABLETS ON DAY 1, THEN ONE (1) TABLET DAY #2 THRU #5 ED Critical Care Critical Care No at 0011
[2017-05-24] MEDS ORDERED: PREDNISONE 20MG20 MG PO (00:07)
[2017-05-24] MEDS ORDERED: TESSALON PERLE100 MG PO (00:07)
[2017-05-24] MEDS ORDERED: ZITHROMAX Z PA250 MG PO (00:07)
[2017-05-24 00:18] VITALS: BP 132/76
--- NOTE | 2017-05-24 06:16 | RADIOLOGY REPORT PS360 ---
CHEST(2 VIEWS-NOT PORTABLE) HISTORY: Chest pain CP ORDERING PHYSICIAN: Donta Verdugo MD PATIENT AGE: 31 years COMPARISON: 05/12/2017 FINDINGS: The cardiomediastinal silhouette and pulmonary vascularity are within normal limits. The lungs are clear without infiltrates, suspicious nodules, or pleural effusions. No acute bony abnormalities. IMPRESSION: Negative chest, no acute finding
== END 2017-05-24 00:19 | disposition home or self-care (01) ==
LOC: ER 22:20
PROVIDERS: Emergency Medicine
DX: R09.1 Pleurisy (principal); T78.40XA Allergy, unspecified, initial encounter; F17.210 Nicotine dependence, cigarettes, uncomplicated

== ENCOUNTER → 2017-05-27 | Outpatient (CLI) | payer MEDICAID ==
[~2017-05-27] MED LIST changes: +PREDNISONE 20MG20 MG PO; +TESSALON PERLE100 MG PO; +ZITHROMAX Z PA250 MG PO
[2017-05-27 18:13] LABS: HEMOGLOBIN 15.7 g/dL (14.1-18.0); LYMPH # 2.1 K/mm3 (0.7-4.5); LYMPH % 9.5 % (10-50)
[2017-05-27 18:23] LABS: AMPHETAMINES/METAMPHETAMINES NEGATIVE ng/mL (<1000)
[2017-05-27 18:44] LABS: BUN 17 mg/dL (7-18)
[2017-05-27 18:47] LABS: GFR (ESTIMATED) 98 ML/MIN (>60)
[2017-05-27 19:33] LABS: NEUTROPHILS 88 % (42-76)
[2017-05-29 16:36] LABS: HBsAg Screen Negative (Negative); Hep A Ab, IgM Negative (Negative); Hep B Core Ab, IgM Negative (Negative); Hep C Virus Ab <0.1 (0.0-0.9)
== END ==
LOC: LAB 17:37
PROVIDERS: Nurse Practitioner Family
DX: R53.83 Other fatigue (principal); Z79.899 Other long term (current) drug therapy; Z00.00 Encounter for general adult medical examination without abnormal findings

== ENCOUNTER → 2017-06-08 | Outpatient (CLI) | payer MEDICAID ==
--- NOTE | 2017-06-09 16:33 | RADIOLOGY REPORT PS360 ---
PROCEDURE: 2-D M-mode and color Doppler study INDICATIONS FOR THE TEST: Chest painX COPD Heart Murmur Tobacco SmokingX Palpitations Fatigue Syncope Edema Hypertension Diabetes Mellitus Rheumatic Fever SOBXDOE Obesity Hyperlipidemia Family History HD Additional History PATIENT INFORMATION HEIGHT: 70 WEIGHT:174 GENDER: Male B/P:136/69 2-D/M-MODE INTERPRETATION: 2-D MEASUREMENTS OBSERVED VALUES IN CMS Right Ventricular Dimension (RVDd) 1.9 Interventricular Septum (Thickness)(IVsd) .9 Left Ventricular Internal Dimensions(LVIDd) 5.4 Left Ventricular Posterior Wall (Thickness)(LVPWd) .9 Aortic Root 3.3 Aortic Cusp Separation 2.4 Left Atrial Dimensions (LAD) 3.7 2D 1. Left atrium is normal size, left ventricle is normal size with normal contractility. There is no concentric left ventricular hypertrophy, visually estimated ejection fraction 55% with no obvious regional wall motion abnormality 2. The right atrium and right ventricle are normal size and contractility. 3. The aortic, mitral and tricuspid valve are structurally normal. 4. The pulmonic valve is poorly visualized. 5. There is no significant pericardial effusion noted. DOPPLER INTERROGATION: Doppler interrogation of the aortic, mitral and tricuspid valvular presence of trace mitral and tricuspid regurgitation, tricuspid and enteric velocity insufficient for calculation of the right ventricular systolic pressure, diastolic parameters are within normal range. CONCLUSION: 1. Normal left ventricular size, preserved left ventricular systolic function, visually estimated ejection fraction 55% with no obvious regional wall motion abnormality, diastolic parameters are within normal range. 2. Trace mitral and tricuspid regurgitation. 3. No significant pericardial effusion noted.
== END ==
LOC: RT 08:00
DX: R07.9 Chest pain, unspecified (principal); R06.09 Other forms of dyspnea; R00.1 Bradycardia, unspecified